=== PATIENT | female | born 1955 | race African-American/Black ===

== ENCOUNTER 2020-02-14 13:32 | Emergency (ER) | payer OTHER ==
[~2020-02-14] VITALS: Ht 167.6 cm; Wt 73.0 kg
[2020-02-14] MEDS ORDERED: CLARITIN10 M3 PO (13:43)
[2020-02-14] MEDS ORDERED: FLONASE 0.05%50 MCG NARES (13:43)
[2020-02-14] MEDS ORDERED: LIDOCAINE PAIN1 EACH TRANSDERM (14:32)
[2020-02-14 15:00] VITALS: BP 117/67
== END 2020-02-14 15:00 | disposition home or self-care (01) ==
LOC: ER 13:32
DX: S20.212A Contusion of left front wall of thorax, initial encounter (principal); K21.9 Gastro-esophageal reflux disease without esophagitis; M19.011 Primary osteoarthritis, right shoulder; Z98.890 Other specified postprocedural states; Z79.899 Other long term (current) drug therapy; Z88.5 Allergy status to narcotic agent; V89.2XXA Person injured in unspecified motor-vehicle accident, traffic, initial encounter; Y93.89 Activity, other specified; Y92.488 Other paved roadways as the place of occurrence of the external cause; Y99.8 Other external cause status